=== PATIENT | male | born 1955 | race Caucasian/White ===

== ENCOUNTER 2020-08-14 14:14 | Emergency (ER) | payer BC ==
[2020-08-14] MEDS ORDERED: Sodium Chloride 0.9% 10 ML Syringe FLUSH PRN (14:43)
--- NOTE | 2020-08-14 15:04 | CR ---
PROCEDURE INFORMATION: Exam: XR Chest, 1 View Exam date and time: 08/14/2020 2:30 PM Age: 64 years old Clinical indication: Shortness of breath TECHNIQUE: Imaging protocol: XR of the chest Views: 1 view. COMPARISON: No relevant prior studies available. FINDINGS: Lungs: Patchy infiltrates in the right mid and lower lung zone consistent with pneumonitis. Atelectasis left mid lung zone. Pleural space: Unremarkable. No pleural effusion. No pneumothorax. Heart/Mediastinum: Unremarkable. No cardiomegaly. Vasculature: Uncoiled thoracic aorta. Bones/joints: Unremarkable. IMPRESSION: Patchy infiltrates in the right mid and lower lung zone consistent with pneumonitis. Thank you for allowing us to participate in the care of your patient. Dictated and Authenticated by: Benny Cho MD 08/14/2020 4:01 PM Central Time ([place] & [place]) ELLI
--- NOTE | 2020-08-14 15:52 | EDM.PDOC ---
ED HPI GENERAL MEDICAL PROBLEM - General Chief Complaint: Respiratory Problem Stated Complaint: LOW BP/WEAKNESS/ COVID + Time Seen by Provider: 08/14/20 14:42 Source of Information: Reports: Patient, RN Notes Reviewed History Limitations: Reports: No Limitations - History of Present Illness INITIAL COMMENTS - FREE TEXT/NARRATIVE: Patient is a 64-year-old male presenting to the emergency department with complaints of fatigue and generalized weakness with a known diagnosis of COVID- 19. She was diagnosed with Covid 8 days ago. At the onset of his diagnosis, he was started on dexamethasone 6 mg daily for 5 days. He finished this on Thursday. He denies feeling short of breath, he does have an occasional cough. States his main complaint is extreme fatigue. It took all the strength he could gather to take a shower today. He had checked his blood pressure at home and was found to be 88/60. After that reading, he did drink some oral fluids and states it came up to the 120s systolically. He denies feeling dizzy. Oxygen saturation after exertion was initially 88% on room air, however it has come up to 91 to 95% on room air with rest. He is afebrile. He denies any chest pain. - Related Data Allergies Allergy/AdvReac Type Severity Reaction Status Date / Time No Known Allergies Allergy Verified 08/14/20 14:35 Home Meds: Home Meds Allopurinol [Zyloprim] 100 mg PO DAILY 08/14/20 [History] dexAMETHasone [Dexamethasone] 6 mg PO BID 4 Days #8 tab 08/14/20 [Rx] lisinopriL [Prinivil] 20 mg PO DAILY 08/14/20 [History] metFORMIN HCl [Metformin HCl] 1,000 mg PO BID 08/14/20 [History] Past Medical History Cardiovascular History: Reports: Hypertension Musculoskeletal History: Reports: Gout Endocrine/Metabolic History: Reports: Diabetes, Type II - Infectious Disease History Infectious Disease History: Reports: Novel Coronavirus Social & Family History - Tobacco Use Tobacco Use Status *Q: Never Tobacco User - Caffeine Use Caffeine Use: Reports: Coffee - Recreational Drug Use Recreational Drug Use: No ED ROS GENERAL - Review of Systems Review Of Systems: See Below Constitutional: Reports: Weakness, Fatigue. Denies: Fever, Chills HEENT: Reports: No Symptoms Respiratory: Reports: Cough. Denies: Shortness of Breath, Wheezing Cardiovascular: Denies: Chest Pain, Dyspnea on Exertion, Lightheadedness, Syncope Endocrine: Reports: No Symptoms GI/Abdominal: Reports: No Symptoms. Denies: Abdominal Pain, Diarrhea, Nausea, Vomiting : Reports: No Symptoms Musculoskeletal: Reports: No Symptoms Skin: Reports: No Symptoms Neurological: Reports: No Symptoms. Denies: Dizziness, Headache Psychiatric: Reports: No Symptoms Hematologic/Lymphatic: Reports: No Symptoms Immunologic: Reports: No Symptoms ED EXAM, GENERAL - Physical Exam Exam: See Below Exam Limited By: No Limitations General Appearance: Alert, WD/WN, No Apparent Distress Respiratory/Chest: No Respiratory Distress, Lungs Clear, Normal Breath Sounds, No Accessory Muscle Use, Chest Non-Tender Cardiovascular: Normal Peripheral Pulses, Regular Rate, Rhythm, No Edema, No Gallop, No JVD, No Murmur, No Rub GI/Abdominal: Normal Bowel Sounds, Soft, Non-Tender, No Organomegaly, No Distention, No Abnormal Bruit, No Mass Neurological: Alert, Oriented, CN II-XII Intact, Normal Cognition, Normal Gait, Normal Reflexes, No Motor/Sensory Deficits Psychiatric: Normal Affect, Normal Mood Skin Exam: Warm, Dry, Intact, Normal Color, No Rash #1 Interpretation EKG Date: 08/14/20 Time: 14:34 Rhythm: NSR Rate (Beats/Min): 77 Spencer: LAD-Left Spencer Deviation P-Wave: Present QRS: Normal ST-T: Normal QT: Normal Course - Vital Signs Last Recorded V/S: Last Vital Signs Temp 97.2 F 08/14/20 14:31 Pulse 80 08/14/20 14:31 Resp 20 08/14/20 14:31 BP 123/75 08/14/20 14:31 Pulse Ox 93 L 08/14/20 14:31 Orthostatic Blood Pressure [ 111/70 Standing] Orthostatic Blood Pressure [ 107/73 Sitting] Orthostatic Blood Pressure [ 110/70 Supine] - Orders/Labs/Meds Orders: Active Orders 24 hr Category Date Time Status EKG Documentation Completion [RC] STAT Care 08/14/20 14:43 Active Orthostatic Vital Signs [RC] ASDIRECTED Care 08/14/20 14:43 Active Peripheral IV Care [RC] . DIRECTED Care 08/14/20 14:44 Active Sodium Chloride 0.9% [Saline Flush] Med 08/14/20 14:43 Active 10 ml FLUSH ASDIRECTED PRN Peripheral IV Insertion Adult [OM.PC] Stat Oth 08/14/20 14:43 Ordered Medication Orders Sodium Chloride (Saline Flush) 10 ml FLUSH ASDIRECTED PRN PRN Reason: Keep Vein Open Last Admin: 08/14/20 15:16 Dose: 10 ml Documented by: DILEEP Labs: Laboratory Tests 08/14/20 08/14/20 Range/Units 14:40 14:40 WBC 9.42 H (4.23-9.07) K/mm3 RBC 4.87 (4.63-6.08) M/mm3 Hgb 14.9 (13.7-17.5) gm/dl Hct 45.3 (40.1-51.0) % MCV 93.0 H (79.0-92.2) fl MCH 30.6 (25.7-32.2) pg MCHC 32.9 (32.2-35.5) g/dl RDW Std Deviation 46.3 H (35.1-43.9) fL Plt Count 318 D (163-337) K/mm3 MPV 10.0 (9.4-12.3) fl Neut % (Auto) 78.3 H (34.0-67.9) % Lymph % (Auto) 5.7 L (21.8-53.1) % H[place]speth % (Auto) 12.2 (5.3-12.2) % Eos % (Auto) 0.7 L (0.8-7.0) Baso % (Auto) 0.3 (0.1-1.2) % Neut # (Auto) 7.37 H (1.78-5.38) K/mm3 Lymph # (Auto) 0.54 L (1.32-3.57) K/mm3 [place]eth # (Auto) 1.15 H (0.30-0.82) K/mm3 Eos # (Auto) 0.07 (0.04-0.54) K/mm3 Baso # (Auto) 0.03 (0.01-0.08) K/mm3 Manual Slide Review Abnormal smear Sodium 134 L (136-145) mEq/L Potassium 4.2 (3.5-5.1) mEq/L Chloride 99 (98-107) mEq/L Carbon Dioxide 26 (21-32) mEq/L Anion Gap 13.2 (5-15) BUN 16 (7-18) mg/dL Creatinine 1.1 (0.7-1.3) mg/dL Est Cr Clr Drug Dosing 71.31 mL/min Estimated GFR (MDRD) > 60 (>60) mL/min BUN/Creatinine Ratio 14.5 (14-18) Glucose 244 H (80-115) mg/dL Calcium 9.1 (8.5-10.1) mg/dL Total Bilirubin 0.6 (0.2-1.0) mg/dL AST 22 (15-37) U/L ALT 55 (16-63) U/L Alkaline Phosphatase 99 (46-116) U/L Troponin I < 0.017 (0.00-0.056) ng/mL C-Reactive Protein 13.4 H* (<1.0) mg/dL Total Protein 6.9 (6.4-8.2) g/dl Albumin 2.5 L (3.4-5.0) g/dl Globulin 4.4 gm/dL Albumin/Globulin Ratio 0.6 L (1-2) Meds: Medications Generic Name Dose Route Start Last Admin Trade Name Freq PRN Reason Stop Dose Admin Sodium Chloride 10 ml 08/14/20 14:43 08/14/20 15:16 Saline Flush FLUSH 10 ml ASDIRECTED PRN Administration Keep Vein Open - Re-Assessments/Exams Free Text/Narrative Re-Assessment/Exam: Patient is a 64-year-old male presenting to the emergency department with complaints of weakness and fatigue with a known diagnosis of COVID-19. He was diagnosed 8 days ago. At the initial onset of the illness, he was started on dexamethasone 6 mg daily, however this has been come pleated for a few days. He denies feeling short of breath. Does have a dry cough. Denies any vomiting or diarrhea. Will complete blood work including CBC, CMP, CRP, troponin. We will do a chest x-ray and an EKG. As well as orthostatic vital signs. 08/14/20 15:53 Hematology was significant for a WBC minimally elevated at 9.42, possibly due to the steroids he received earlier in the illness. CRP 13.4. Troponin is negative. Oxygen saturations have maintained 91 to 94% on room air. Chest x- ray shows patchy infiltrates in the right mid and lower lung zone consistent with pneumonitis. EKG showed no acute ischemia. Patient's dexamethasone was likely started too soon to be beneficial. He has been off of it for about 3 days. We are going to reinitiate a course of dexamethasone 6 mg twice daily for 4 days. Recommend that he purchase a home pulse oximeter to monitor his oxygen saturations. Discussed return precautions. Discharge instructions as documented. Departure - Departure Time of Disposition: 15:53 Disposition: Home, Self-Care 01 Condition: Good Clinical Impression: Pneumonia due to COVID-19 virus - Discharge Information *PRESCRIPTION DRUG MONITORING PROGRAM REVIEWED*: No *COPY OF PRESCRIPTION DRUG MONITORING REPORT IN PATIENT YARA: No Prescriptions: dexAMETHasone [Dexamethasone] 6 mg PO BID 4 Days #8 tab Instructions: COVID-19 Frequently Asked Questions, COVID-19 Referrals: Reema Vargas, WINE STEWARD [Primary Care Provider] - Forms: ED Department Discharge Additional Instructions: You were seen in the emergency department today for evaluation with regards to a known diagnosis of COVID-19. Work-up included blood work, an EKG, and a chest x-ray. Results your blood work were consistent with inflammation related to COVID-19. Chest x-ray shows that you do have viral pneumonia in your right lung. EKG showed no acute abnormalities. Blood work and blood pressure was done in the ER show that you are adequately hydrated, therefore fluids were not given. As we discussed, the steroids that you received when you initially diagnosed were likely given too soon to be effective for the inflammatory process of COVID-19. We have ordered another course of dexamethasone. This has been sent electronically to [facility]. Take these medications as prescribed. Ensure that you are taking an adequate amount of fluid in the form of Gatorade or Powerade in order to also provide electrolytes. I would also recommend that you get a home pulse oximeter to monitor your oxygen saturations. This is available for purchase at [facility] as well. If you are maintaining an oxygen saturation below 90%, you should return to the emergency department for reevaluation. Sepsis Event Note (ED) - Evaluation Sepsis Screening Result: No Definite Risk - Focused Exam Vital Signs: Vital Signs Temp Pulse Resp BP Pulse Ox 08/14/20 14:31 97.2 F 80 20 123/75 93 L - My Orders Last 24 Hours: My Active Orders 08/14/20 14:43 EKG Documentation Completion [RC] STAT Orthostatic Vital Signs [RC] ASDIRECTED Sodium Chloride 0.9% [Saline Flush] 10 ml FLUSH ASDIRECTED PRN Peripheral IV Insertion Adult [OM.PC] Stat 08/14/20 14:44 Peripheral IV Care [RC] . DIRECTED - Assessment/Plan Last 24 Hours: My Active Orders 08/14/20 14:43 EKG Documentation Completion [RC] STAT Orthostatic Vital Signs [RC] ASDIRECTED Sodium Chloride 0.9% [Saline Flush] 10 ml FLUSH ASDIRECTED PRN Peripheral IV Insertion Adult [OM.PC] Stat 08/14/20 14:44 Peripheral IV Care [RC] . DIRECTED
== END 2020-08-14 16:15 | disposition home or self-care (01) ==
LOC: JD.ED 14:14
DX: U07.1 COVID-19 (principal); J12.89 Other viral pneumonia; I10 Essential (primary) hypertension; M10.9 Gout, unspecified; E11.9 Type 2 diabetes mellitus without complications; Z79.84 Long term (current) use of oral hypoglycemic drugs; Z79.899 Other long term (current) drug therapy
CPT/HCPCS: 36415; 71045; 71045-26; 80053; 84484; 85025; 86140; 93005; 93010; 99283; 99285-25

== ENCOUNTER 2025-08-23 12:29 | Inpatient (IN) | payer MEDICARE, BC ==
[2025-08-23] MEDS ORDERED: Sodium Chloride 0.9% 10 ML Syringe FLUSH PRN (14:40)
[2025-08-23 14:49] LABS: BASOPHILS ABSOLUTE AUTO 0.0 K/mm3 (0.0-0.2); BASOPHILS PERCENT AUTO 0.1 % (0.0-1.0); EOSINOPHILS ABSOLUTE AUTO 0.2 K/mm3 (0.0-0.4); EOSINOPHILS PERCENT AUTO 2.2 % (0.0-6.0); IMMATURE GRAN ABSOLUTE AUTO 0.09 K/mm3 (0.00-0.05); IMMATURE GRAN PERCENT AUTO 0.9 % (0.0-0.4); LYMPHOCYTES ABSOLUTE AUTO 1.0 K/mm3 (1.0-4.8); LYMPHOCYTES PERCENT AUTO 9.6 % (24.0-44.0); MEAN PLATELET VOLUME 10.8 fl (9.4-12.4); MONOCYTES ABSOLUTE AUTO 1.6 K/mm3 (0.0-0.8); MONOCYTES PERCENT AUTO 15.6 % (0.0-8.0); NEUTROPHILS ABSOLUTE AUTO 7.5 K/mm3 (1.8-7.7); NEUTROPHILS PERCENT AUTO 71.6 % (41.0-71.0); NRBC ABSOLUTE 0.00 (0.00-0.02); NRBC PERCENT 0.0 % (0.0-0.2); PLATELET COUNT,PLT 342 K/mm3 (150-400); RED BLOOD CELL COUNT 5.97 M/mm3 (4.52-5.90); WHITE BLOOD CELL COUNT,WBC 10.45 K/mm3 (3.9-11.3)
[2025-08-23] MEDS: Sodium Chloride 0.9% 10 ML Syringe FLUSH ONE (15:15)
[2025-08-23] MEDS: Iopamidol 612 MG/ML 100 ML Bottle IVPUSH ONE (15:15)
[2025-08-23 15:20] LABS: A/G RATIO 1.1 (1-2); ALANINE AMINOTRANSFERASE,ALT 38.0 U/L (16-63); ASPARTATE AMNIOTRANSFERASE,AST 12.0 U/L (15-37); BILIRUBIN TOTAL 0.9 mg/dL (0.2-1.0); BLOOD UREA NITROGEN,BUN 49.0 mg/dL (7-18); CARBON DIOXIDE,CO2 20.0 mEq/L (21-32); CHLORIDE,CL 104.0 mEq/L (98-107); CREATININE 3.3 mg/dL (0.7-1.3); EST CRCL DRUG DOSING (CG) 22.18 mL/min; ESTIMATED GFR 19.0 mL/min (>60); GLUCOSE RANDOM 226.0 mg/dL (70-99); POTASSIUM,K 5.1 mEq/L (3.5-5.1); PROTEIN TOTAL,TP 8.2 g/dl (6.4-8.2); SODIUM,NA 139.0 mEq/L (136-145); TROPONIN I HIGH SENSITIVITY 31.0 pg/mL (<=76)
[2025-08-23 15:23] LABS: LACTIC ACID 3.3 mmol/L (0.4-2.0)
[2025-08-23 15:41] LABS: APPEARANCE,URINE CLEAR (Clear); GLUCOSE,URINE NEGATIVE (Negative); OCCULT BLOOD,URINE NEGATIVE (Negative)
[2025-08-23 15:54] LABS: EPITHELIAL CELLS,URINE 0-5 /hpf (0-5)
[2025-08-23] MEDS ORDERED: Ondansetron 4 MG/2 ML SDV IV PRN (16:43)
[2025-08-23] MEDS ORDERED: Ondansetron 4 MG Tab.DIS PO PRN (16:43)
[2025-08-23] MEDS: Insulin Lispro 100 Unit/ML 3 ML KwikPen SUBCUT SCH (17:07)
[2025-08-23] MEDS: Heparin Sodium 5,000 Units/ML Vial SUBCUT SCH (17:10)
[2025-08-23] MEDS: Saccharomyces Boulardii (Probiotic) 250 MG Cap PO SCH (17:17)
[2025-08-24 04:43] LABS: BASOPHILS ABSOLUTE AUTO 0.1 K/mm3 (0.0-0.2); BASOPHILS PERCENT AUTO 0.5 % (0.0-1.0); EOSINOPHILS ABSOLUTE AUTO 0.4 K/mm3 (0.0-0.4); EOSINOPHILS PERCENT AUTO 3.8 % (0.0-6.0); IMMATURE GRAN ABSOLUTE AUTO 0.08 K/mm3 (0.00-0.05); IMMATURE GRAN PERCENT AUTO 0.8 % (0.0-0.4); LYMPHOCYTES ABSOLUTE AUTO 2.2 K/mm3 (1.0-4.8); LYMPHOCYTES PERCENT AUTO 22.0 % (24.0-44.0); MEAN PLATELET VOLUME 10.6 fl (9.4-12.4); MONOCYTES ABSOLUTE AUTO 1.7 K/mm3 (0.0-0.8); MONOCYTES PERCENT AUTO 17.6 % (0.0-8.0); NEUTROPHILS ABSOLUTE AUTO 5.4 K/mm3 (1.8-7.7); NEUTROPHILS PERCENT AUTO 55.3 % (41.0-71.0); NRBC ABSOLUTE 0.00 (0.00-0.02); NRBC PERCENT 0.0 % (0.0-0.2); PLATELET COUNT,PLT 292 K/mm3 (150-400); RED BLOOD CELL COUNT 4.56 M/mm3 (4.52-5.90); WHITE BLOOD CELL COUNT,WBC 9.76 K/mm3 (3.9-11.3)
[2025-08-24 04:57] LABS: BLOOD UREA NITROGEN,BUN 35.0 mg/dL (7-18); CARBON DIOXIDE,CO2 18.0 mEq/L (21-32); CHLORIDE,CL 109.0 mEq/L (98-107); CREATININE 1.2 mg/dL (0.7-1.3); EST CRCL DRUG DOSING (CG) 61.01 mL/min; ESTIMATED GFR 65.0 mL/min (>60); GLUCOSE RANDOM 136.0 mg/dL (70-99); POTASSIUM,K 3.9 mEq/L (3.5-5.1); SODIUM,NA 138.0 mEq/L (136-145)
[2025-08-25 06:21] LABS: BASOPHILS ABSOLUTE AUTO 0.1 K/mm3 (0.0-0.2); BASOPHILS PERCENT AUTO 0.8 % (0.0-1.0); EOSINOPHILS ABSOLUTE AUTO 0.2 K/mm3 (0.0-0.4); EOSINOPHILS PERCENT AUTO 2.9 % (0.0-6.0); IMMATURE GRAN ABSOLUTE AUTO 0.16 K/mm3 (0.00-0.05); IMMATURE GRAN PERCENT AUTO 2.4 % (0.0-0.4); LYMPHOCYTES ABSOLUTE AUTO 2.0 K/mm3 (1.0-4.8); LYMPHOCYTES PERCENT AUTO 30.7 % (24.0-44.0); MEAN PLATELET VOLUME 10.4 fl (9.4-12.4); MONOCYTES ABSOLUTE AUTO 1.0 K/mm3 (0.0-0.8); MONOCYTES PERCENT AUTO 15.4 % (0.0-8.0); NEUTROPHILS ABSOLUTE AUTO 3.1 K/mm3 (1.8-7.7); NEUTROPHILS PERCENT AUTO 47.8 % (41.0-71.0); NRBC ABSOLUTE 0.00 (0.00-0.02); NRBC PERCENT 0.0 % (0.0-0.2); PLATELET COUNT,PLT 224 K/mm3 (150-400); RED BLOOD CELL COUNT 4.16 M/mm3 (4.52-5.90); WHITE BLOOD CELL COUNT,WBC 6.54 K/mm3 (3.9-11.3)
[2025-08-25 06:42] LABS: BLOOD UREA NITROGEN,BUN 12.0 mg/dL (7-18); CARBON DIOXIDE,CO2 23.0 mEq/L (21-32); CHLORIDE,CL 113.0 mEq/L (98-107); CREATININE 0.8 mg/dL (0.7-1.3); EST CRCL DRUG DOSING (CG) 91.51 mL/min; ESTIMATED GFR 95.0 mL/min (>60); GLUCOSE RANDOM 107.0 mg/dL (70-99); POTASSIUM,K 4.0 mEq/L (3.5-5.1); SODIUM,NA 143.0 mEq/L (136-145)
== END 2025-08-25 10:20 | disposition home or self-care (01) | DRG 683 ==
LOC: JD.ED 12:29 → JD.MS 16:43
PROVIDERS: ADMIT Hospitalist; ATTEND Hospitalist
DX: N17.9 Acute kidney failure, unspecified (principal); E87.20 Acidosis, unspecified; K52.9 Noninfective gastroenteritis and colitis, unspecified; E11.9 Type 2 diabetes mellitus without complications; I10 Essential (primary) hypertension; K59.09 Other constipation; M10.9 Gout, unspecified; Z86.16 Personal history of COVID-19; E86.0 Dehydration; K21.9 Gastro-esophageal reflux disease without esophagitis; Z87.01 Personal history of pneumonia (recurrent); Z79.84 Long term (current) use of oral hypoglycemic drugs; Z79.899 Other long term (current) drug therapy; Z98.890 Other specified postprocedural states; Z79.1 Long term (current) use of non-steroidal anti-inflammatories (NSAID)
CPT/HCPCS: 36415; 74177; 80053; 81001; 83605; 83690; 83735; 83880; 84484; 85025; 86140; 93005; 96360; 96361; 99285; J7030 ×2; Q9967; 80048; 82947; 87507; 93010; 99222; 99232; 99239; A9270-GY; J1644